=== PATIENT | male | born 1980 | race Two or more races ===

== ENCOUNTER 2022-11-02 02:01 | Emergency (ER) | payer BC, MEDICAID ==
[2022-11-02] MEDS ORDERED: Sodium Chloride 0.9% 10 ML Syringe FLUSH PRN (02:35)
[2022-11-02] MEDS ORDERED: Ondansetron 4 MG/2 ML SDV IVPUSH ONE (02:35)
[2022-11-02] MEDS ORDERED: HYDROmorphone 0.5 MG/0.5 ML Syringe IVPUSH ONE (02:38)
[2022-11-02] MEDS ORDERED: Sodium Chloride 0.9% 1,000 ML IV SCH (02:45)
[2022-11-02] MEDS ORDERED: Levofloxacin/Dextrose 5%-Water 500 MG in Premix Bag 1 BAG IV ONE (02:53)
== END 2022-11-02 04:11 | disposition home or self-care (01) ==
LOC: JD.ED 02:01
DX: R11.2 Nausea with vomiting, unspecified (principal); R19.7 Diarrhea, unspecified; R10.9 Unspecified abdominal pain
CPT/HCPCS: 96365; 96375; 99283; J1170; J1956; J2405; J3490; J7030; 99284